=== PATIENT | female | born 1990 | race Caucasian/White ===

== ENCOUNTER 2017-06-05 12:25 | Inpatient (IN) | payer OTHER ==
[~2017-06-05 12:25] MED LIST: CITRIC ACID/SODIUM CITRATE 30 ML UNIT-DOSE CUP PO ONE; ELECTROLYTE-148 SOLN 1,000 ML IV SCH
[2017-06-05] MEDS: ELECTROLYTE-148 SOLN 500 ML IV SCH (12:30)
[2017-06-05 13:21] VITALS: BMI 34.2
[2017-06-05] MEDS ORDERED: morphine SULFATE/Preservative Free 0.5 MG/ML (1cc Syringe) SPIN ONE (14:28)
--- NOTE | 2017-06-05 14:28 | HP ---
Past Medical History - Primary Care Physician PCP:: Ze Watson - Admission Chief Complaint: 41 weeks, post date , LGA , request of c/s History of Present Illness: 27 yo f edc 05/27/17 41.3 weeks, with LGA, requesting to have c/s, declined induction of labor , cx closed heath post, vx -4 mi, fhr cat 1.EFW greater than 10 lb, risks of c/s discussed . aware risks of infection, bleeding , DVT, anesthesia risks, post op complication and adverse effect on future History Source: Patient Limitations to Obtaining History: No Limitations - Past Medical History ...: 1 ...Para: 0 ...Term: 0 ...: 0 ...Spon : 0 ...Induced : 0 ...Multiple Gestation: 0 ...LMP: 08/20/16 ... Weeks Gestation by Dates: 41.2 ...EDC by Dates: 05/27/17 ...EDC by Sono: 05/27/17 - Past Surgical History Hx Myomectomy: No Hx Transabdominal Cerclage: No - Smoking History Smoking history: Never smoked Have you smoked in the past 12 months: No - Alcohol/Substance Use Hx Alcohol Use: No - Social History Usual Living Arrangement: Yes: With Spouse History of Recent Travel: No Home Medications - Allergies Allergies/Adverse Reactions: Allergies Allergy/AdvReac Type Severity Reaction Status Date / Time No Known Allergies Allergy Verified 06/05/17 13:22 - Home Medications Home Medications: Ambulatory Orders Ferrous Sulfate [Feosol] 325 mg PO DAILY 06/05/17 Lactobacillus Combo No.10 [Probiotic] 1 each PO DAILY 06/05/17 Vitamins (Sjr) - 1 tab PO DAILY 06/05/17 Review of Systems - Review of Systems Constitutional: reports: No Symptoms Eyes: reports: No Symptoms HENT: reports: No Symptoms Neck: reports: No Symptoms Cardiovascular: reports: No Symptoms Respiratory: reports: No Symptoms Gastrointestinal: reports: No Symptoms Genitourinary: reports: No Symptoms Breasts: reports: No Symptoms Reported Musculoskeletal: reports: No Symptoms Integumentary: reports: No Symptoms Neurological: reports: No Symptoms Endocrine: reports: No Symptoms Hematology/Lymphatic: reports: No Symptoms Psychiatric: reports: No Symptoms Physical Exam - Maternity Vital Signs: Vital Signs Temperature 98.4 F 06/05/17 13:13 Pulse Rate 88 06/05/17 13:13 Respiratory Rate 20 06/05/17 13:13 Blood Pressure 117/73 06/05/17 13:13 O2 Sat by Pulse Oximetry (%) Constitutional: Yes: Well Nourished, No Distress, Calm Eyes: Yes: WNL, Conjunctiva Clear, EOM Intact HENT: Yes: WNL, Atraumatic, Normocephalic Neck: Yes: WNL, Supple, Trachea Midline Cardiovascular: Yes: WNL, Regular Rate and Rhythm Breast(s): Yes: WNL - Abdominal Exam/OB Fundal Height: 40 Number of Fetuses: Single Presentation: Vertex Contractions: No Intensity: Unaware Monitor Mode: External Heart Rate Location: LLQ Accelerations: Uniform Decelerations: None - Vaginal Exam/OB Dilatation (cm): closed Effacement (%): 0 Amniotic Membrane Status: Intact Presentation: Vertex/Position Station: -4 - Physical Exam Musculoskeletal: Yes: Back Pain Edema: Yes Edema: LLE: 1+, RLE: 1+ Deep Tendon Reflex Grade: Normal +2 Hemorrhage Risk Assessment - Risk Factors Medium Risk Factors: Yes: EFW greater than 4000g Risk Score: 1 Risk Level: Medium Risk Problem List - Problems (1) with 41 completed weeks gestation Code(s): Z3A.41 - 41 WEEKS GESTATION OF (2) Post-dates Code(s): O48.0 - POST-TERM Qualifiers: Post-term type: 40-42 weeks gestation Qualified Code(s): O48.0 - Post-term (3) Large for gestational age fetus Code(s): CPY5605 - (4) Obesity Code(s): E66.9 - OBESITY, UNSPECIFIED Qualifiers: Obesity type: due to excess calories Assessment/Plan c/s rba discussed
[2017-06-05] MEDS ORDERED: IBUPROFEN 600 MG TABLET (FP) PO PRN (14:32)
[2017-06-05] MEDS ORDERED: ONDANSETRON 4 MG/2 ML VIAL IVPUSH PRN (14:32)
[2017-06-05] MEDS ORDERED: BENZOCAINE 28 GM HEMORRHOIDAL OINTMENT PR PRN (15:18)
[2017-06-05] MEDS ORDERED: diphenhydrAMINE HCL 25 MG CAPSULE (FP) PO PRN (15:18)
[2017-06-05] MEDS ORDERED: WITCH HAZEL 50% (TUCKS) 40 PAD/JAR PAD TP PRN (15:18)
[2017-06-05] MEDS ORDERED: IBUPROFEN 800 MG/8 ML IJ IVPB PRN (15:18)
[2017-06-05] MEDS ORDERED: BENZOCAINE 20% 57 GM BOTTLE TP PRN (15:18)
[2017-06-05] MEDS ORDERED: oxyCODONE HCL 5 MG TABLET PO PRN ×2 (15:18)
[2017-06-05] MEDS ORDERED: METHYLERGONOVINE MALEATE 0.2 MG/1 ML AMP IM PRN (15:18)
[2017-06-05] MEDS ORDERED: OXYTOCIN 20 UNITS in 0.9% NS 20 UNIT/1,000 ML INFUS.BAG IV SCH (15:30)
[2017-06-05] MEDS ORDERED: CEFAZOLIN 1 GM PUSH 1 GM/10 ML DISP.SYRIN IVPUSH SCH (18:00)
[2017-06-05] MEDS: CEFAZOLIN 1 GM PUSH 1 GM/10 ML DISP.SYRIN IVPUSH SCH (21:38)
[2017-06-06] MEDS: DEXTROSE 5%-LACTATED RINGERS 1,000 ML IV SCH ×3 (00:20→17:45)
[2017-06-06] MEDS: CEFAZOLIN 1 GM PUSH 1 GM/10 ML DISP.SYRIN IVPUSH SCH (05:57)
--- NOTE | 2017-06-06 08:05 | PN ---
Progress Note (short form) - Note Progress Note: Anesthesia post op Pt seen and examined S:alert and awake comfortable O: Vital Signs Temperature 98.0 F 06/06/17 06:00 Pulse Rate 72 06/06/17 06:00 Respiratory Rate 18 06/06/17 06:00 Blood Pressure 100/56 06/06/17 06:00 O2 Sat by Pulse Oximetry (%) 100 06/05/17 16:15 A/P:s/p c section Doing well post op Continue current care Mark Sue MD
[2017-06-06] MEDS: SIMETHICONE 80 MG TAB.CHEW (FP) PO PRN ×3 (08:10→16:12)
[2017-06-06] MEDS: IBUPROFEN 600 MG TABLET (FP) PO PRN ×3 (08:10→16:12)
[2017-06-06] MEDS: ACETAMINOPHEN 325 MG TABLET (FP) PO PRN ×3 (08:11→16:12)
[2017-06-06 08:41] LABS: BASOPHIL 0.1 % (0-2.0); EOSINOPHIL 0.5 % (0-4.5); MCH 31.6 pg (25.7-33.7); MCHC 33.9 g/dl (32.0-36.0); MEAN CELL VOLUME 93.1 fl (80-96); MEAN PLT VOLUME 8.6 fl (7.5-11.1); NEUTROPHILS 82.3 % (42.8-82.8); PLATELET COUNT 181 K/MM3 (134-434); RDW 13.1 % (11.6-15.6)
--- NOTE | 2017-06-06 08:47 | PN ---
Post Progress Note - Subjective Subjective: 27 yo Para 1 status post primary seen and evaluated. She c/o mild incision pain. Post Day: 1 Type of Delivery: Primary C/S Vital Signs: Vital Signs Temperature 98.0 F 06/06/17 06:00 Pulse Rate 72 06/06/17 06:00 Respiratory Rate 18 06/06/17 06:00 Blood Pressure 100/56 06/06/17 06:00 O2 Sat by Pulse Oximetry (%) 100 06/05/17 16:15 Breast Exam: Yes: Soft Uterus: Yes: Fundus Firm Incision: Yes: Dressing dry and intact Abdomen/GI: Yes: Abdomen soft Lochia: Yes: Rubra Lochia, amount: Moderate Extremities: Yes: Calves non-tender Activity: Other (She's lying in bed) Problem List - Problems (1) Status post primary low transverse section Code(s): Z98.891 - HISTORY OF UTERINE SCAR FROM PREVIOUS SURGERY Assessment/Plan Status post primary Low Transverse Status post primary Stable Ambulation Analgesia as needed Continue post op care
[2017-06-06] MEDS: ENOXAPARIN NA (PORCINE) 40 MG/0.4 ML DISP.SYRIN SQ SCH (10:49)
[2017-06-06] MEDS ORDERED: BISACODYL 10 MG SUPP.RECT PR PRN (15:19)
[2017-06-06] MEDS: ELECTROLYTE-148 SOLN 500 ML IV SCH (17:46)
[2017-06-07] MEDS: ACETAMINOPHEN 325 MG TABLET (FP) PO PRN ×4 (05:35→20:18)
[2017-06-07] MEDS: SIMETHICONE 80 MG TAB.CHEW (FP) PO PRN ×4 (05:35→20:18)
[2017-06-07] MEDS: IBUPROFEN 600 MG TABLET (FP) PO PRN ×4 (05:35→20:18)
[2017-06-07] MEDS: ENOXAPARIN NA (PORCINE) 40 MG/0.4 ML DISP.SYRIN SQ SCH (10:00)
--- NOTE | 2017-06-07 12:58 | PN ---
Post Progress Note - Subjective Subjective: 27 yo Para 1 status post primary , seen and evaluated. She's doing well. She's breast feeding. Post Day: 2 Type of Delivery: Primary C/S Vital Signs: Vital Signs Temperature 97.7 F 06/07/17 09:00 Pulse Rate 75 06/07/17 09:00 Respiratory Rate 20 06/07/17 09:00 Blood Pressure 100/51 06/07/17 09:00 O2 Sat by Pulse Oximetry (%) 100 06/05/17 16:15 Breast Exam: Yes: Soft Uterus: Yes: Fundus Firm Incision: Yes: [place] intact Abdomen/GI: Yes: Abdomen soft Lochia: Yes: Rubra Lochia, amount: Small Extremities: Yes: Calves non-tender Perineum: Yes: Intact Activity: Ambulating - Labs Labs: CBC WBC 15.0 K/mm3 (4.0-10.0) H 06/06/17 07:00 RBC 3.61 M/mm3 (3.60-5.2) 06/06/17 07:00 Hgb 11.4 GM/dL (10.7-15.3) D 06/06/17 07:00 Hct 33.6 % (32.4-45.2) 06/06/17 07:00 MCV 93.1 fl (80-96) 06/06/17 07:00 MCH 31.6 pg (25.7-33.7) 06/06/17 07:00 MCHC 33.9 g/dl (32.0-36.0) 06/06/17 07:00 RDW 13.1 % (11.6-15.6) 06/06/17 07:00 Plt Count 181 K/MM3 (134-434) D 06/06/17 07:00 MPV 8.6 fl (7.5-11.1) 06/06/17 07:00 Neutrophils % 82.3 % (42.8-82.8) 06/06/17 07:00 Lymphocytes % 11.6 % (8-40) D 06/06/17 07:00 Monocytes % 5.5 % (3.8-10.2) 06/06/17 07:00 Eosinophils % 0.5 % (0-4.5) 06/06/17 07:00 Basophils % 0.1 % (0-2.0) 06/06/17 07:00 Problem List - Problems (1) Status post primary low transverse section Code(s): Z98.891 - HISTORY OF UTERINE SCAR FROM PREVIOUS SURGERY Assessment/Plan Status post primary Low Transverse Status post primary Stable Ambulation Analgesia as needed Continue post op care
[2017-06-07] MEDS: ELECTROLYTE-148 SOLN 500 ML IV SCH (17:31)
[2017-06-07] MEDS: DEXTROSE 5%-LACTATED RINGERS 1,000 ML IV SCH (17:31)
[2017-06-07] MEDS ORDERED: SENNOSIDES/DOCUSATE COMBO (SENNA PLUS) TABLET (UD) PO PRN (22:00)
[2017-06-08 07:17] LABS: BASOPHIL 0.3 % (0-2.0); EOSINOPHIL 1.9 % (0-4.5); MCH 31.8 pg (25.7-33.7); MCHC 34.1 g/dl (32.0-36.0); MEAN CELL VOLUME 93.1 fl (80-96); MEAN PLT VOLUME 7.9 fl (7.5-11.1); NEUTROPHILS 70.3 % (42.8-82.8); PLATELET COUNT 220 K/MM3 (134-434); RDW 13.2 % (11.6-15.6); WHITE BLOOD COUNT 12.3 K/mm3 (4.0-10.0)
[2017-06-08 09:11] VITALS: BP 135/76; PULSE 78; TEMP 98
--- NOTE | 2017-06-08 09:42 | DS ---
Physical Exam-CARE MANAGEMENT SPECIALIST Vital Signs: Vital Signs Temperature 98 F 06/08/17 09:07 Pulse Rate 78 06/08/17 09:07 Respiratory Rate 20 06/08/17 09:07 Blood Pressure 135/76 06/08/17 09:07 O2 Sat by Pulse Oximetry (%) 100 06/05/17 16:15 Constitutional: Yes: Well Nourished Eyes: Yes: Conjunctiva Clear HENT: Yes: Atraumatic Neck: Yes: Supple Cardiovascular: Yes: Regular Rate and Rhythm Respiratory: Yes: Regular Gastrointestinal: Yes: Normal Bowel Sounds External Genitalia: Yes: Normal Vaginal Exam: Yes: Normal Cervix: Yes: Normal Uterus: Yes: Firm Wound/Incision: Yes: Clean/Dry, Well Approximated, [place] Intact Neurological: Yes: Alert, Oriented ...Motor Strength: WNL Psychiatric: Yes: Alert, Oriented Labs: CBC, BMP 06/08/17 06:40 Delivery - Delivery Type of Anesthesia: Spinal Episiotomy/Laceration: None EBL (cc): 500 Delivery, Single - Stages of Labor Date of Delivery: 06/05/17 Time of Delivery: 14:44 Time Placenta Delivered: 14:45 - Condition of Infant Director Check/Metal Organ Pipe Maker Present: Yes Name: Prasanna Monge Gender: Male Weight: 10 lb 5 oz Position: Right, OT Total Hours ROM (Hrs/Mins): 0hrs 2min - 1 Minute Total Score: 9 5 Minutes Total Score: 9 - [place] Feeding Plan Initial Plan: Exclusive throughout hospitalization Discharge Summary Reason For Visit: C SECTION Current Active Problems Large for gestational age fetus (Acute) Obesity (Acute) Post-dates (Acute) with 41 completed weeks gestation (Acute) Status post primary low transverse section (Acute) Procedures: Principal: Primary Low Transverse Hospital Course: Routine care Condition: Good - Instructions Diet, Activity, Other Instructions: Regular diet No driving no lifting x 4 weeks F/U in clinic in one week for yanique removal Disposition: HOME - Home Medications Comprehensive Discharge Medication List: Ambulatory Orders Ferrous Sulfate [Feosol] 325 mg PO DAILY 06/05/17 Lactobacillus Combo No.10 [Probiotic] 1 each PO DAILY 06/05/17 Vitamins (Sjr) - 1 tab PO DAILY 06/05/17
[2017-06-08] MEDS: ENOXAPARIN NA (PORCINE) 40 MG/0.4 ML DISP.SYRIN SQ SCH (10:57)
[2017-06-08] MEDS: IBUPROFEN 600 MG TABLET (FP) PO PRN (11:02)
[2017-06-08] MEDS: ACETAMINOPHEN 325 MG TABLET (FP) PO PRN (11:02)
--- NOTE | 2017-06-10 20:03 | OP ---
DATE OF OPERATION: 06/05/2017 PREOPERATIVE DIAGNOSIS: , post dates, large for gestational age, planned induction, request of section. POSTOPERATIVE DIAGNOSIS: , post dates, large for gestational age, planned induction, request of section. PROCEDURE: Primary low segment transverse section. SURGEON: Ze Watson M.D. DAMPPROOFER: Oz Boo ANESTHESIA: Spinal. ESTIMATED BLOOD LOSS: 500 mL. OPERATION: Patient was taken to operating room with adequate epidural anesthesia. Abdomen and perineum were prepped and draped. Pfannenstiel abdominal skin incision was made. Abdominal wall was cut layer by layer until the peritoneum was exposed and incised. Upon entering the abdominal cavity, the lower uterine segment was identified, and uterovesical fold of the peritoneum was established. The bladder was pushed down. Then low transverse incision was made. The incision extended laterally. Amniotic sac was entered. Head delivered. Nasopharynx was suctioned. A live baby was delivered without any difficulty. Placenta was delivered manually. Uterine cavity was cleared of all remaining tissue. Uterine incision was closed in 2 layers, the 1st layer with 0 Biosyn continuous suture, the 2nd layer with 0 Biosyn imbricating the 1st layer. Bladder flap was closed with 0 Biosyn continuous suture. Both tubes and ovaries were checked and were normal. No active bleeding was seen. All the lap, sponge, and instrument counts were correct. Peritoneum was closed with 0 Biosyn continuous suture. Muscles were brought together interrupted suture with 0 Biosyn. Fascia was closed with 0 Biosyn continuous sutures. Subcutaneous fat with interrupted sutures 0 Biosyn, and the skin was closed with yanique continuous suture. The patient tolerated the procedure well and left the OR in good condition. ZE WATSON M.D. [id number]
== END 2017-06-08 12:20 | disposition home or self-care (01) | DRG 766 ==
LOC: JLDR 12:25 → J3W 17:00
PROVIDERS: ADMIT Obstetrics & Gynecology; ATTEND Obstetrics & Gynecology
PROC: 10D00Z1 Extraction of Products of Conception, Low, Open Approach (ICD-10-PCS; principal; 2017-06-05)
PROC: 3E0334Z Introduction of Serum, Toxoid and Vaccine into Peripheral Vein, Percutaneous Approach (ICD-10-PCS; 2017-06-06)
DX: O36.63X0 Maternal care for excessive fetal growth, third trimester, not applicable or unspecified (principal); O48.0 Post-term pregnancy; O99.214 Obesity complicating childbirth; E66.9 Obesity, unspecified; Z68.34 Body mass index [BMI] 34.0-34.9, adult; Z3A.41 41 weeks gestation of pregnancy; O26.893 Other specified pregnancy related conditions, third trimester; Z67.91 Unspecified blood type, Rh negative; Z37.0 Single live birth
CPT/HCPCS: 36415; 85025; 85461; 86999